=== PATIENT | female | born 1940 | race Caucasian/White ===

== ENCOUNTER 2024-11-26 13:58 | Emergency (ER) | payer MEDICARE ==
[2024-11-26 15:15] LABS: Bilirubin Neg (Negative); Blood, Urine 25 (Negative); Clarity Hazy (Clear); Glucose, Urine (Dipstick) Normal (Negative); Ketone, Urine 5 mg/dL (Negative); Leukocyte Negative (Negative); Nitrite Negative (Negative); Protein, Urine (Dipstick) 100 mg/dl (Neg-Trace); Specific Gravity, Urine 1.025 (1.005-1.030); Urobilinogen Normal mg/dL (Less than 2)
[2024-11-26 15:22] LABS: #Basophils Less than 0.03 10x3/uL (0.0-0.2); #Eosinophils Less than 0.03 10x3/uL (0.0-0.5); #Monocytes 0.65 10x3/uL (0.0-1.1); #Neutrophils 3.41 10x3/uL (1.5-8.4); %Lymphocytes 15.7 % (18.0-47.0); %Monocytes 13.4 % (0.0-10.0); %Neutrophils 70.3 % (40.0-75.0); Hematocrit 35.5 % (34.9-44.5); Hemoglobin 11.7 g/dL (12.0-15.5); Mean Corpuscular Hemoglobin 29.3 pg (27.0-33.0); Mean Platelet Volume 9.3 fL (7.4-10.4); Platelet Count 224 10x3/uL (150-450); RBC Distribution Width 13.1 % (11.5-14.5); Red Blood Cell (RBC) Count 3.99 10x6/uL (3.90-5.03); White Blood Cell (WBC) Count 4.85 10x3/uL (3.5-10.5)
[2024-11-26 15:34] LABS: ALT (SGPT) 23 U/L (Less than 34); AST (SGOT) 54 U/L (11-34); Albumin 3.4 g/dL (3.1-4.5); Alkaline Phosphatase 58 U/L (40-110); Anion Gap 16 mmol/L (10-20); BUN (Urea Nitrogen) 23 mg/dL (9.8-20.1); Bilirubin, Total 0.3 mg/dL (0.3-1.2); CK (CPK) 1717 U/L (29-168); Calc. Creatinine Clearance 0 mL/min (70-130); Calcium 8.6 mg/dL (7.8-10.44); Carbon Dioxide 19 mmol/L (23-31); Chloride 108 mmol/L (98-107); Estimated GFR 45; Globulin 3.1 g/dL (2.4-3.5); Glucose 108 mg/dL (83-110); Magnesium 4.1 mg/dL (1.6-2.6); Potassium 3.2 mmol/L (3.5-5.1); Protein, Total 6.5 g/dL (5.8-8.1); Sodium 140 mmol/L (136-145)
[2024-11-26 15:39] LABS: Bacteria/HPF 2+ HPF (None Seen); CAUTI Indications for Culture Alt mental st,lethar; Mucous/LPF 1+ LPF (<2+); Squamous Epithelial 0-3 HPF (0-3); WBC/HPF 0-3 HPF (0-3)
[2024-11-26 15:40] LABS: White Blood Cell Cast 0-3 LPF (None Seen)
[2024-11-26 15:42] LABS: Urine Culture Reflex No No
[2024-11-26 15:51] LABS: Troponin I 0.366 ng/mL (< 0.028)
[2024-11-26] MEDS ORDERED: Potassium Chloride 20 MEQ TAB ONE (16:07)
[2024-11-26 17:27] LABS: Phosphorus 2.8 mg/dL (2.5-4.5)
[2024-11-26 18:20] LABS: PTT 24.7 sec (22.0-33.0); Prothrombin Time 10.7 sec (9.5-12.1)
[2024-11-26 19:06] LABS: Critical Call Chem Troponin I at ers.om read back result @ 1905; Troponin I 0.326 ng/mL (< 0.028)
[2024-11-26 20:01] LABS: Anion Gap 12 mmol/L (10-20); BUN (Urea Nitrogen) 22 mg/dL (9.8-20.1); CK (CPK) 1369 U/L (29-168); Calc. Creatinine Clearance 0 mL/min (70-130); Calcium 7.8 mg/dL (7.8-10.44); Carbon Dioxide 20 mmol/L (23-31); Chloride 112 mmol/L (98-107); Estimated GFR 48; Glucose 100 mg/dL (83-110); Magnesium 1.8 mg/dL (1.6-2.6); Potassium 3.4 mmol/L (3.5-5.1); Sodium 141 mmol/L (136-145)
[2024-11-26] MEDS ORDERED: Aspirin 325 MG TAB ONE (20:58)
== END 2024-11-26 21:29 | disposition short-term general hospital (02) ==
LOC: CSHERS 13:58
DX: M62.82 Rhabdomyolysis (principal); R79.89 Other specified abnormal findings of blood chemistry; I10 Essential (primary) hypertension; Z79.899 Other long term (current) drug therapy; Z79.82 Long term (current) use of aspirin
CPT/HCPCS: 36415; 51701; 70450; 72125; 72128; 80053; 81001; 82550; 83605; 83735; 84100; 84484; 85025; 85610; 85730; 93005; 96360; 96361